=== PATIENT | female | born 1980 | race Caucasian/White ===

== ENCOUNTER 2017-02-12 22:15 | Emergency (ER) | payer SELFPAY ==
[~2017-02-12] VITALS: Ht 167.6 cm; Wt 56.7 kg
[2017-02-12] MEDS ORDERED: VENTOLIN HFA18 GM INH (22:32)
[2017-02-12 22:40] VITALS: BP 110/71
--- NOTE | 2017-02-12 22:53 | Emergency Room Report ---
History of Present Illness General Chief Complaint: Sore Throat Source: Patient, Family Member Present Illness HPI This is a 37-year-old female who was a smoker. She presents with chief complaint of shortness of breath on off the last month. She get episodes where she thought she can't breathe. No fever chills but no nausea no vomiting. Said that she had a hard time taking of breath and also exhaling. She saw her primary care Dr. referred to an ear nose and throat Dr. She had endoscopy was told that she has some edema to the vocal cords. Told her to stop smoking which she did. Her doctor also put her on Xanax which helped. She came today to she felt short of breath or so today. She is better now. She worried that she may have lung cancer. A friend of the family just gave and was diagnosed with lung cancer within a week. Because of that she worried that she may have lung cancer. Allergies: Coded Allergies: No Known Allergies (Unverified , 02/12/17) Patient History Past Medical History: see triage record, old chart reviewed Past Surgical History: none Pertinent Family History: none Social History: Reports: smoking - Quit 2 weeks ago Last Menstrual Period: january Now: No Immunizations: other Reviewed Nursing Documentation: PMH: Agreed, PSxH: Agreed Nursing Documentation-PMH Hx Asthma: Yes Review of Systems Eye: Denies: blurred vision, eye pain ENT: Denies: ear pain, nose congestion, throat swelling Respiratory: Reports: shortness of breath, Denies: cough Cardiovascular: Denies: chest pain, palpitations Gastrointestinal: Denies: abdominal pain, diarrhea, nausea, vomiting Musculoskeletal: Denies: back pain, joint pain Skin: Denies: rash Neurological: Denies: headache, numbness Endocrine: Denies: increased thirst, increased urine Hematologic/Lymphatic: Denies: easy bruising All Other Systems: negative except mentioned in HPI Physical Exam Vital Signs Date Time Temp Pulse Resp B/P Pulse Ox O2 Delivery O2 Flow Rate FiO2 02/12/17 22:23 97.7 89 16 106/73 100 Room Air vitals normal Sp02 EP Interpretation: reviewed, normal General Appearance: well appearing, no apparent distress, alert Head: normocephalic, atraumatic Eyes: bilateral eye EOMI, bilateral eye PERRL ENT: hearing grossly normal, normal pharynx Neck: full range of motion, supple, no meningismus Respiratory: chest non-tender, lungs clear, normal breath sounds Cardiovascular #1: regular rate, rhythm, no murmur Gastrointestinal: normal bowel sounds, non tender, no mass, no organomegaly, no bruit, non-distended Musculoskeletal: back normal, gait/station normal, normal range of motion Psychiatric: mood/affect normal Skin: warm/dry Medical Decision Making Diagnostic Impression: Primary Impression: Anxiety ER Course Patient presents with transient dyspnea. No evidence of ACS, PE, dissection. Most likely anxiety related. Lungs are clear. No wheezing. No evidence of any mass. She is not tachypneic, tachycardic or hypoxic. Chest X-Ray Diagnostic Results EP Interpretation: Yes Findings: no consolidation, no effusion, no pneumothorax, no acute cardiopulmonary disease Number of Views: 1 Last Vital Signs Date Time Temp Pulse Resp B/P Pulse Ox O2 Delivery O2 Flow Rate FiO2 02/12/17 22:23 97.7 89 16 106/73 100 Room Air Status: improved Disposition: HOME, SELF-CARE Condition: Stable Additional Instructions: Followup your DrBoyd in 3-5 days. You may increase her Xanax to 0.5 mg 3 times a day. Return if worse COLEMAN KENNEY M.D. February 12, 2017 22:53
[2017-02-12 23:09] VITALS: BP 110/71
--- NOTE | 2017-02-13 10:20 | Diagnostic Imaging Report ---
Indication: Chest Pain Comparison: None A single view chest radiograph was obtained. Findings: Cardiomediastinal appearance is within normal limits for age. Pulmonary vascularity is appropriate. The diaphragmatic contour is smooth and costophrenic angles are sharp. No pleural effusions are identified. The bones are unremarkable. Impression: No acute findings
== END 2017-02-12 23:10 | disposition home or self-care (01) ==
LOC: EMR 22:43
DX: F41.9 Anxiety disorder, unspecified (principal); J02.9 Acute pharyngitis, unspecified; F17.200 Nicotine dependence, unspecified, uncomplicated; R06.02 Shortness of breath; J45.909 Unspecified asthma, uncomplicated
CPT/HCPCS: 71010; 99283